=== PATIENT | male | born 1995 | race American Indian/Alaskan Native ===

== ENCOUNTER 2018-09-11 07:14 | Emergency (ER) | payer OTHER ==
[2018-09-11 07:17] VITALS: BP 116/63
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
--- NOTE | 2018-09-11 09:31 | XRay Report ---
LUMBOSACRAL SPINE, 3 VIEWS: History: Back injury Findings: The vertebral bodies, disk spaces and posterior elements are intact. No compression deformity or malalignment. The SI joints are symmetric and unremarkable. Impression: 1. No evidence for acute injury to the lumbar spine.
== END 2018-09-11 09:09 | disposition home or self-care (01) ==
LOC: ED 07:14
DX: M54.5 Low back pain (principal); V89.2XXA Person injured in unspecified motor-vehicle accident, traffic, initial encounter; Y93.89 Activity, other specified; Y92.488 Other paved roadways as the place of occurrence of the external cause; Y99.8 Other external cause status
CPT/HCPCS: 72100; 99283

== ENCOUNTER 2019-07-19 15:13 | Emergency (ER) | payer SELFPAY ==
[2019-07-19 16:29] VITALS: BP 123/85
--- NOTE | 2019-07-19 16:41 | Emergency Department Report ---
Chief Complaint: Shoulder Injury Stated Complaint: LEFT SHOULDER INJURY Time Seen by Provider: 07/19/19 16:38 - HPI History of Present Illness: pt is a 23 yo male who presents to the ED with c/o left shoulder pain that began three days ago. he denies any fall or injury. 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 he states he has had this pain in the past due to his work. he denies any edema, weakness, numbness. he denies any PMHx or allergies to meds. VSS. on exam: Mild left posterior trapezius tenderness to palpation Full range of motion of the entire left upper extremity without difficulty Neurovascular intact no sulcus sign no joint laxity no edema clavicles are equal Examination consistent with muscle strain pt is presenting with a non-medical emergency at this time medical screening examination performed and there is no threat to life or limb at this time will have pt follow up with a PCP and orthopedic doctor advised pt may take tylenol or ibuprofen for discomfort. use ice pack, heating pad, rest, epsom salt bath. follow up with a primary care doctor and an orthopedic doctor. return to the emergency room for any new or worsening symptoms. - Exam Vital Signs: Vital Signs 07/19/19 16:27 Temperature 98.3 F Pulse Rate 98 H Respiratory 16 Rate Blood Pressure 123/85 O2 Sat by Pulse 99 Oximetry MSE screening note: Focused history and physical exam performed. ED Disposition for MSE Clinical Impression: Strain of left trapezius muscle Qualifiers: Encounter type: initial encounter Qualified Code(s): S46.812A - Strain of other muscles, fascia and tendons at shoulder and upper arm level, left arm, initial encounter Disposition: Z-07 MED SCREENING EXAM-LEFT Is pt being admited?: No Does the pt Need Aspirin: No Condition: Stable Instructions: Muscle Strain (ED) Additional Instructions: may take tylenol or ibuprofen for discomfort. use ice pack, heating pad, rest, epsom salt bath. follow up with a primary care doctor and an orthopedic doctor. return to the emergency room for any new or worsening symptoms. Referrals: CE MOSQUERA MD [Staff Physician] - 3-5 Days [facility] [Outside] - 3-5 Days NEYMAR LI MD [Staff Physician] - 3-5 Days Forms: Work/School Release Form(ED) Time of Disposition: 16:39 Print Language: JORDANIAN
== END 2019-07-19 16:57 | disposition left against medical advice (07) ==
LOC: ED 15:13
DX: S46.812A Strain of other muscles, fascia and tendons at shoulder and upper arm level, left arm, initial encounter (principal); X58.XXXA Exposure to other specified factors, initial encounter; Y93.89 Activity, other specified; Y92.89 Other specified places as the place of occurrence of the external cause; Y99.8 Other external cause status
CPT/HCPCS: 99282